=== PATIENT | male | born 1950 | race Caucasian/White ===

== ENCOUNTER 2019-12-11 19:00 | Emergency (ER) | payer MEDICARE, SELFPAY ==
--- NOTE | ~2019-12-11 | CT_ITS ---
EXAMINATION: CT abdomen pelvis w con DATE: 12/11/2019 20:12 INDICATION: Left lower quadrant abdominal pain. TECHNIQUE: Computed tomography (CT) of the abdomen and pelvis was performed with 100 mL Omnipaque 350 intravenous contrast. Automated exposure control and iterative reconstruction technique were employe d. The dose-length product was 511.52 mGy-cm. COMPARISON: None. FINDINGS: The visualized portions of the lung bases demonstrate mild atelectasis. No pleural effusion . The heart size is normal. No pericardial effusion. There is a small sliding hiatal hernia. The live r, gallbladder, spleen, pancreas, and adrenal glands are normal. There is cortical thinning of the ki dneys. There is a 14 mm cyst in right kidney. There is a 2 mm stone in right kidney. There are no dil ated loops of bowel. There are scattered diverticula in the colon. There is fat stranding around a di verticulum of proximal sigmoid colon with bowel wall thickening, consistent with diverticulitis. The appendix is normal. There is a diverticulum of the third portion the duodenum. There are no pathologi viri enlarged lymph nodes. There is no free intraperitoneal fluid. There is prominent fat in the ing uinal canals that may be small hernias. The prostate is mildly enlarged. There is severe lumbar spond ylosis. There is a chronic compression fracture of L2. IMPRESSION: 1. Acute sigmoid diverticulitis. No perforation or abscess. Reviewed, dictated and finalized at location A.
[2019-12-11 19:05] VITALS: BP 118/99; PULSE 101; RESP 18; TEMP 37.5; O2SAT 98
--- NOTE | 2019-12-11 19:28 | ED.ABDPAIN ---
HPI - Abdominal Pain General Chief Complaint: Abdominal Pain Stated Complaint: Lower ABD Pain Time Seen by Provider: 12/11/19 19:21 History of Present Illness HPI narrative: Lower abdominal pain intermittently for about 4 months. The pain is increasing. Moderate in severity. Associated with tenderness, tenesmus, and straining to have a bowel movement. He has noticed that stool appears like klaudia. He tried magnesium citrate yesterday. He says that it did not work, but it sounds like he did have a bowel movement today. He saw his PCP and was prescribed linzess, he has not taken it. Related Data Allergies Allergy/AdvReac Type Severity Reaction Status Date / Time No Known Allergies Allergy Verified 12/11/19 20:07 Review of Systems Review of Systems: All systems reviewed & are unremarkable except as noted in HPI and below Constitutional: Constitutional: Denies fever(s) Cardiovascular: Cardiovascular: Denies chest pain Respiratory: Respiratory: Denies dyspnea Gastrointestinal: Gastrointestinal: Reports abdominal pain and Reports constipation Genitourinary: Genitourinary: Denies hematuria and Denies oliguria Musculoskeletal: Musculoskeletal: Denies back pain Neurologic: Denies weakness [facility] Past Medical History Medical History (Updated 12/12/19 @ 00:00 by Sarthak Javed) Anxiety GERD (gastroesophageal reflux disease) Gout Social History Social History Gender identity (if verbalized by the patient): Male Exam Const: General: healthy appearing, no acute distress and alert Orientation/consciousness: patient oriented x3 HENMT: Head: normal to inspection Neck: Neck: normal visual inspection and no lymphadenopathy Chest: Chest palpation & inspection: no tenderness Resp: Effort & Inspection: normal respiratory effort Auscultation: clear to auscultation bilaterally, no rales, no rhonchi and no wheezes Cardio: Jugular venous distension: no JVD Rate: regular rate Rhythm: regular rhythm Heart sounds: no murmurs GI: Inspection: non-distended GI Palp: Yes Soft to palpation, Yes Tenderness to palpation present (GI) (LLQ), No Guarding due to palpation present (GI) and No Rebound tenderness present Skin: General skin exam: normal color Neuro: General: patient oriented x3, moves all extremities and CN's II-XI intact bilaterally Speech: normal speech Extrem: General: no edema Psych: Appearance: well kempt Affect: normal affect Course Vital Signs Vital signs: Vital Signs Temperature 37.5 C 12/11/19 19:05 Pulse Rate 101 H 12/11/19 19:05 Respiratory Rate 18 12/11/19 19:05 Blood Pressure 118/99 H 12/11/19 19:05 Pulse Oximetry 98 12/11/19 19:05 Temperature 37.5 C 12/11/19 19:05 Pulse Rate 60 12/11/19 21:27 Respiratory Rate 20 12/11/19 21:27 Blood Pressure 122/78 12/11/19 21:27 Pulse Oximetry 100 12/11/19 21:27 MDM - Abdominal Pain MDM Narrative Medical decision making narrative: He has uncomplicated diverticulitis on CT. Additionally his creatinine is 1.9. this is new since last labs, although those were years ago, so it is difficult to know the chronicity. I offered admission for hydration and repeat labs. He said that he would make sure to drink plenty of water and follow-up with his PCP later this week. Medical Records Attestation: I reviewed the patient's medical records. Lab Data Attestation: I reviewed the patient's lab results. Result diagrams: 12/11/19 19:49 12/11/19 19:56 Labs: Lab Results 12/11/19 12/11/19 12/11/19 Range/Units 19:49 19:49 19:51 WBC 13.9 H (4.5-10.0) K/mm3 RBC 5.23 (4.6-6.20) M/mm3 Hgb 15.1 (14.0-18.0) g/dL Hct 45.6 (42.0-52.0) % MCV 87.2 (80-100) fl MCH 28.9 (26-34) pg MCHC 33.1 (32-36) g/dl RDW 13.8 (11.5-14.5) % Plt Count 210 (150-375) k/mm3 MPV 11.4 H (7.4-10.4) fl Immature Gran % (Auto
[2019-12-11 19:54] LABS: Basophils Percent Auto 0.3 % (0.2-1.2); Eosinophils Percent Auto 0.3 % (0-4.4); Hematocrit 45.6 % (42.0-52.0); Hemoglobin 15.1 g/dL (14.0-18.0); Immature Granulocyte Absolute 0.11 K/mm3 (0.00-0.031); Immature Granulocyte Percent A 0.8 % (0-0.5); Lymphocytes Absolute Auto 1.07 K/mm3 (0.9-3.2); Lymphocytes Percent Auto 7.7 % (18.3-44.2); Mean Corpuscular HGB Conc 33.1 g/dl (32-36); Mean Corpuscular Hemoglobin 28.9 pg (26-34); Mean Corpuscular Volume 87.2 fl (80-100); Mean Platelet Volume 11.4 fl (7.4-10.4); Neutrophils Absolute Auto 11.7 K/mm3 (1.3-6.7); Neutrophils Percent Auto 83.9 % (45.5-73.1); Platelet Count Result 210 k/mm3 (150-375); Red Blood Count 5.23 M/mm3 (4.6-6.20); Red Cell Distribution Width 13.8 % (11.5-14.5); White Blood Count 13.9 K/mm3 (4.5-10.0)
[2019-12-11 19:58] LABS: Estimated CRCL calculation 38 ml/min; Estimated Glomerular Filt Rate 33
[2019-12-11 20:01] LABS: Add Urine Microscopic? YES; Appearance Urine Clear (Clear); Bacteria Urine Trace /hpf; Bilirubin Urine Negative (Negative); Blood Urine Negative (Negative); Color Urine Yellow (Yellow); Glucose Urine UA Negative (Negative); Hyaline Casts Urine 30-49 /lpf; Ketones Urine Negative (Negative); Leukocyte Esterase Ur Negative LEU/UL (Negative); Mucus Urine Few /lpf; Nitrate Urine Negative (Negative); Protein Urine 1+ mg/dL (Negative); RBC Urine 0-2 /hpf (0-2); Specific Grav Ur 1.027 (1.001-1.035); Squamous Epithelial Cell Urine Rare /hpf (Few); Urobilinogen Urine Negative mg/dL (<2.0)
[2019-12-11 20:06] LABS: Alanine Aminotransferase 15 U/L (4-50); Albumin Level 4.4 g/dL (3.5-5.1); Alkaline Phosphatase 92 U/L (38-126); Aspartate Amino Transferase 26 U/L (17-59); Bilirubin,Total 0.9 mg/dL (0.2-1.3); Blood Urea Nitrogen 32 mg/dL (9-20); Calcium 10.6 mg/dL (8.4-10.2); Carbon Dioxide 25 mmol/L (22-30); Chloride 105 mmol/L (98-107); Estimated CRCL calculation 40 ml/min; Estimated Glomerular Filt Rate 35; Glucose 113 mg/dL (75-110); Lipase 78 U/L (23-300); Potassium 4.5 mmol/L (3.4-5.0); Sodium 136 mmol/L (137-145)
[2019-12-11] MEDS: SODIUM CHLORIDE 0.9% IV 1,000 ML 999 ML IV CONT (20:10)
[2019-12-11 20:11] VITALS: BP 119/70; PULSE 70; RESP 20; O2SAT 100
[2019-12-11 20:32] VITALS: BP 119/70; PULSE 67; RESP 20; O2SAT 99
[2019-12-11] MEDS: CIPROFLOXACIN 500 MG TAB PO (21:26)
[2019-12-11] MEDS: metroNIDAZOLE 250 MG TABLET 500 MG PO (21:26)
[2019-12-11 21:27] VITALS: BP 122/78; PULSE 60; RESP 20; O2SAT 100
== END 2019-12-11 21:29 | disposition home or self-care (01) ==
PROVIDERS: Emergency Provider Emergency Medicine; PCP Family Medicine
DX: K57.32 Diverticulitis of large intestine without perforation or abscess without bleeding (principal); K21.9 Gastro-esophageal reflux disease without esophagitis; M10.9 Gout, unspecified
CPT/HCPCS: 36415; 74177; 80053; 81001; 83690; 85025; 96360; 99284; A9270; J7030; Q9967

== ENCOUNTER 2021-02-23 18:04 | Emergency (ER) | payer MEDICARE, SELFPAY ==
[2021-02-23 18:14] VITALS: BP 117/77; PULSE 82; RESP 16; TEMP 36.2; O2SAT 98
--- NOTE | 2021-02-23 18:35 | ED.EAR ---
HPI - Ear Problem General Chief complaint: Ear Stated complaint: Ear Wax Time Seen by Provider: 02/23/21 18:35 Source: patient Mode of arrival: ambulatory Limitations: no limitations History of Present Illness HPI Narrative: Epi Govea is a 71 yo male with PMH of gout, neuropathy, DDD, to [facility] for bilateral ear wax removal-going to [employer] football [facility] in the morning for hearing aids and they told him he had to have wax removed rather than them do it before taking meds Related Data Home Medications Medication Instructions Recorded Confirmed duloxetine mg PO 02/23/21 pantoprazole PO 02/23/21 temazepam mg 02/23/21 Allergies Allergy/AdvReac Type Severity Reaction Status Date / Time No Known Allergies Allergy Verified 02/23/21 18:56 Review of Systems Review of Systems: CONSTITUTIONAL: Denies fever, chills, sweats. EYES: Denies visual changes, redness, discharge. ENT: Denies rhinorrhea, congestion, sore throat, otalgia. Here for earwax removal CARDIOVASCULAR: Denies chest pain, palpitations, edema. RESPIRATORY: Denies dyspnea, wheezing, cough GASTROINTESTINAL: Denies abdominal pain, nausea, vomiting, diarrhea. GENITOURINARY: Denies dysuria, hematuria, abnormal discharge SKIN: Denies rash or itching. NEUROLOGIC: Denies numbness, or focal weakness. PSYCHIATRIC: Denies anxiety or depression. PMFSH Past Medical History Medical History Anxiety GERD (gastroesophageal reflux disease) Gout Social History Social History Gender identity (if verbalized by the patient): Male Comments At time of signature, I agree with nursing past medical, surgical, social and family history. There is no relevant family history pertinent to the presenting complaint. Exam Narrative: GENERAL: This is a well-nourished, well-developed patient, in mild distress. HEAD: normocephalic, atraumatic. EYES: Sclera clear/white. Vision is grossly intact. EARS: External ears normal, auditory canals erythema bilateral and without drainage, TMs normal without perforation. Hearing grossly intact. NOSE: External nose normal without nasal discharge, nares without redness, no rhinorrhea. THROAT: Mucous membranes moist, posterior pharynx normal NECK: Neck supple, non-tender CARDIOVASCULAR: Regular rate and rhythm without murmurs, gallops, or rubs. RESPIRATORY: Clear to auscultation. Breath sounds equal bilaterally. No wheezes, rales, or rhonchi. GASTROINTESTINAL: Abdomen soft, non-tender, SKIN: warm, intact with no suspicious lesions or rash, good texture and turgor. NEURO: awake, alert, and oriented to person, place and time. There were no obvious focal neurologic abnormalities. Steady gait EXTREMITIES: Normal range of motion. 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 and they saw said there was wax in the bottom of the canal that he needed to have removed before he came tomorrow for fittings of hearing aids Patient is here for cleaning of ears reports having cerumen in both ears Flushed with water and peroxide right ear appears red with some white fibers which were removed with further irrigation on the left there was no wax in the ear Recommended use of Debrox Vital Signs Vital signs: Vital Signs Temperature 97.1 F L 02/23/21 18:14 Pulse Rate 82 02/23/21 18:14 Respiratory Rate 16 02/23/21 18:14 Blood Pressure 117/77 02/23/21 18:14 Pulse Oximetry 98 02/23/21 18:14 Temperature 97.1 F L 02/23/21 18:14 Pulse Rate 82 02/23/21 18:14 Respiratory Rate 16 02/23/21 18:14 Blood Pressure 117/77 02/23/21 18:14 Pulse Oximetry 98 02/23/21 18:14 Medical Decision Making Differential Diagnosis Differential Diagnosis: Otitis media versus otitis externa versus cerumen versus Q-tip in ear Vital Signs Vital Signs: Vital Signs Temperature 9
== END 2021-02-23 19:05 | disposition home or self-care (01) ==
PROVIDERS: Emergency Provider Nurse Practitioner
DX: T16.1XXA Foreign body in right ear, initial encounter (principal); X58.XXXA Exposure to other specified factors, initial encounter; K21.9 Gastro-esophageal reflux disease without esophagitis; M10.9 Gout, unspecified; G62.9 Polyneuropathy, unspecified
CPT/HCPCS: 99213; G0463